=== PATIENT | female | born 1980 | race Caucasian/White ===

== ENCOUNTER 2016-07-30 10:08 | Outpatient (CLI) | payer OTHER ==
--- NOTE | 2016-07-30 13:47 | XRAY Report ---
FRONTAL PELVIS: 07/30/2016 CLINICAL INDICATION: Iridocyclitis. FINDINGS: Frontal view of the pelvis demonstrates no evidence of fracture or dislocation. The sacroi liac joints are unremarkable. There is no evidence of ankylosing spondylitis. IMPRESSION: NORMAL FRONTAL PELVIS. JOB #: [id number] EXT JOB #:[id number]
--- NOTE | 2016-07-30 13:48 | XRAY Report ---
TWO VIEW CHEST: 07/30/2016 CLINICAL INDICATION: Iridocyclitis. FINDINGS: Frontal and lateral views of the chest demonstrate a normal cardiac silhouette. The lungs are clear. No effusion or pneumothorax is present. IMPRESSION: NORMAL CHEST. NO EVIDENCE OF SARCOIDOSIS. JOB #: [id number] EXT JOB #:[id number]
== END 2016-07-30 10:09 | disposition home or self-care (01) ==
LOC: DI 10:08
PROVIDERS: ATTEND Internal Medicine Rheumatology
DX: H20.9 Unspecified iridocyclitis (principal)
CPT/HCPCS: 71020; 72170

== ENCOUNTER 2017-03-06 10:10 | Emergency (ER) | payer OTHER ==
[2017-03-06 10:26] VITALS: BP 132/91
--- NOTE | 2017-03-06 11:09 | ED Physician Documentation ---
History of Present Illness - Stated complaint Stated Complaint: THROAT PX - Chief complaint Chief Complaint: Heent - Additonal information Additional information: hx from pt 36 f LMP 02/28 sore throat cough congestion X 3 days saw exudate on l tonsil Review of Systems Constitutional: reports: Fever Nose: reports: Congestion Throat: reports: Sore throat Respiratory: reports: Cough : denies: Now EGA Skin: denies: Rash PD PAST MEDICAL HISTORY - Past Medical History Past Medical History: No - Past Surgical History Past Surgical History: No - Present Medications Home Medications: Ambulatory Orders Medication Instructions Recorded Confirmed Dextromethorphan/Benzocaine 1 each PO Q4H PRN #20 lozenge 03/06/17 [Cepacol Sorethroat-Cough Bibi] - Allergies Allergies/Adverse Reactions: Allergies Allergy/AdvReac Type Severity Reaction Status Date / Time No Known Drug Allergies Allergy Verified 03/06/17 10:26 - Social History Does the pt smoke?: No Smoking Status: Never smoker Does the pt drink ETOH?: Yes ETOH Use: Wine Does the pt have substance abuse?: No - Immunizations Immunizations are current?: Yes - POLST Patient has POLST: No PD ED PE NORMAL - Vitals Vital signs reviewed: Yes - General General: Alert and oriented X 3 - HEENT HEENT: Ears normal, Moist mucous membranes. No: Pharynx benign (tonsils with mild erythema and crypts no exudate no trisumus) - Neck Neck: No: No adenopathy (anterior no posterior) - Cardiac Cardiac: RRR - Respiratory Respiratory: No respiratory distress, Clear bilaterally - Neuro Neuro: Alert and oriented X 3 Results - Vitals Vitals: Vital Signs - 24 hr 03/06/17 10:23 Temperature 36.3 C L Heart Rate 84 Respiratory 16 Rate Blood Pressure 132/91 H O2 Saturation 99 - Labs Labs: Laboratory Tests 03/06/17 10:36 Group A Strep Rapid Negative Departure - Departure Disposition: Home, Self Care Clinical Impression: Pharyngitis Qualifiers: Pharyngitis/tonsillitis etiology: unspecified etiology Qualified Code(s): J02.9 - Acute pharyngitis, unspecified Condition: Good Instructions: ED Strep Pharyngitis Poss Follow-Up: Mark Anthony Hurtado ARNP [Primary Care Provider] - Prescriptions: Dextromethorphan/Benzocaine [Cepacol Sorethroat-Cough Bibi] 1 each PO Q4H PRN # 20 lozenge PRN Reason: sore throat Comments: The rapid strep test was negative An official throat culture will also be run which will be more accurate and the ER staff will call you if it is positive and you need antibiotics. in the mean time I recommend cepacol lozenges, motrin, and tylenol for the pain
== END 2017-03-06 11:21 | disposition home or self-care (01) ==
LOC: ED 10:10
DX: J02.9 Acute pharyngitis, unspecified (principal)
CPT/HCPCS: 87070; 87430; 99283